=== PATIENT | female | born 1930 | race Caucasian/White ===

== ENCOUNTER 2016-05-18 16:33 | Outpatient (CLI) | payer MEDICARE, OTHER | END 2016-05-18 16:34 | disposition home or self-care (01) | DX: G20 Parkinson's disease (principal); R63.4 Abnormal weight loss; Z79.899 Other long term (current) drug therapy ==

== ENCOUNTER 2016-05-31 16:05 | Outpatient (CLI) | payer MEDICARE, OTHER | END 2016-05-31 16:06 | disposition home or self-care (01) | DX: R82.5 Elevated urine levels of drugs, medicaments and biological substances (principal); R30.0 Dysuria ==

== ENCOUNTER 2016-10-10 09:28 | Outpatient (CLI) | payer MEDICARE, OTHER ==
[2016-10-10 18:48] LABS: ALBUMIN/GLOBULIN RATIO 1.4 (1.0-2.2); BILIRUBIN,TOTAL 0.5 mg/dL (0.2-1.0); BUN - BLOOD UREA NITROGEN 17 mg/dL (6-20); CALCIUM 9.1 mg/dL (8.5-10.3); CARBON DIOXIDE - CO2 28 mmol/L (21-32); CHLORIDE 106 mmol/L (101-111); CHOL/HDL RATIO 3.9 (<4.4); CHOLESTEROL 199 mg/dL; CREATININE 0.7 mg/dL (0.4-1.0); GFR - MDRD 79 (>89); GLUCOSE 84 mg/dL (70-100); HDL CHOLESTEROL 51 mg/dL; LDL/HDL RATIO 2.7 (<4.4); SODIUM 140 mmol/L (135-145); TOTAL PROTEIN 6.8 g/dL (6.7-8.2); TRIGLYCERIDES 60 mg/dL; VLDL CHOLESTEROL 12 mg/dL
[2016-10-10 18:58] LABS: BASOPHILS % (AUTO) 0.4 %; EOSINOPHILS % (AUTO) 0.8 %; HCT - HEMATOCRIT 40.2 % (37.0-47.0); HGB - HEMOGLOBIN 13.2 g/dL (12.0-16.0); LYMPHOCYTES # (AUTO) 1.1 10^3/uL (1.5-3.5); LYMPHOCYTES % (AUTO) 17.4 %; MEAN CORPUSCULAR HGB CONC 32.9 g/dL (32.0-36.0); MEAN CORPUSCULAR VOLUME 94.2 fL (81.0-99.0); MEAN PLATELET VOLUME 7.8 fL (7.9-10.8); MONOCYTES # (AUTO) 0.5 10^3/uL (0.0-1.0); NEUTROPHILS # (AUTO) 4.5 10^3/uL (1.5-6.6); NEUTROPHILS % (AUTO) 73.4 %; RED BLOOD COUNT 4.27 10^6/uL (4.20-5.40); RED CELL DISTRIBUTION WIDTH 14.6 % (12.0-15.0); UNCORRECTED WHITE BLOOD COUNT 6.2 x10^3/uL; WHITE BLOOD COUNT 6.2 x10^3/uL (4.8-10.8)
== END 2016-10-10 09:29 | disposition home or self-care (01) ==
LOC: LAB.R 09:28
PROVIDERS: ATTEND Nurse Practitioner Primary Care
DX: I10 Essential (primary) hypertension (principal)
CPT/HCPCS: 80053; 80061; 85025

== ENCOUNTER 2016-10-28 10:43 | Outpatient (CLI) | payer MEDICARE, OTHER ==
[2016-10-28 15:25] LABS: BILIRUBIN,URINE NEGATIVE (NEGATIVE)
[2016-10-28 15:26] LABS: UA w/ MICROSCOPIC CHARGE YES
[2016-10-28 15:28] LABS: UR CULTURE IF IND INDICATED
== END 2016-10-28 10:44 | disposition home or self-care (01) ==
LOC: LAB.R 10:43
PROVIDERS: ATTEND Nurse Practitioner Primary Care
DX: R82.99 Other abnormal findings in urine (principal)
CPT/HCPCS: 81001; 81003; 87077; 87086

== ENCOUNTER 2017-02-14 11:00 | Outpatient (CLI) | payer MEDICARE, OTHER ==
--- NOTE | 2017-02-14 16:29 | CONSULTATION NOTE ---
Palliative Care Consultation - Referral Referring Provider: DANIELLA Marrero Time of Visit: 11:00 Referral setting: Home (Seen in home setting due to taxing and considerable effort required to leave the home due to instability secondary to advanced Parkinson's disease.) - Information Sources Records reviewed: Previous records reviewed History/Review of Systems obtained from: Patient, Family Exam limitations: No limitations - History of Present Illness Brief History of Present Illness: This is a frail appearing 86-year-old woman with Parkinson's disease diagnosed 17 years ago, as well as Lewy body dementia. She is and lives with her 91-year-old . They have a daughter, Erica, in [place] and also a son in the area. Erica is quite involved with the patient's care and visits her parents every Monday on [facility]. Last year the family transferred the patient to [facility] in [place]. She had increasing confusion, hallucinations and delusions related to her Parkinson's medications, and the symptoms improved with titration of the medications. Seroquel was added last fall to her medications for her agitation and getting out of bed during the night; this, too, has improved. [facility] "couldn't handle her" and the family relocated her to [facility] in [facility], which is a [facility] facility. But [facility] did not work out either -- she missed her and continually asked about him, with increasing confusion and distress. The family moved her back home on [facility] on 04/10/2016, and her has been taking care of her since then. He cooks the meals, does the shopping, manages her medications, and oversees everything. She is still somewhat able to do her ADLs (dressing, personal hygiene, showering) though poorly. She reports having "up" days, and "down" days, and today was an "up" day. On the down days, she is confused, needs to lay down, or will call her daughter expressing anxiety about her situation . The daughter is feeling quite stressed, with commuting [place], and she is concerned about her parents' ability to continue to live independently, specifically her father being able to handle his 's medical and personal needs, and continue to manage the household. Both and stated during this visit that they do not want to leave their home, and they plan to stay there. The daughter realizes, after the experience of sending her mother to live in assisted living facilities, that her mother and father need to stay together. They have a tire and lube technician come in once a week. They do not currently have any caregiving help for the 's medical needs, but may be open to having help, as long as it is not live-in help. They state that they are "fine right now "doing it on their own, though this is because they are receiving a lot of support from their daughter, and also neighbors do look in on them. In addition , the may be facing cancer himself. They are following up on this. The patient has has been steadily losing weight over the past few years, a total of 17 kg since July 2013, including 9 kg since October 2015 (see ROS for details). She had several swallow and dietary evaluations done while at Assisted Living, and the daughter declined having any further swallow evaluations performed. The patient has difficulty swallowing meat, and so her does his best to prepare food she can eat, or cut it up in small pieces. She also some missing and/or cracked teeth, which affects her eating habits. Her does state he tries to serve her snacks between meals, and has tried Ensure but she does not finish the cans. Today her SBP was < 100, likely related to low volume. She denied light- headedness, syncope, vertigo, weakness. Tomorrow she has a medical appointment for incontinence and possible replacement of a pessary. She had one placed previously, and she is not aware if it is still in place. Medical/Surgical History - Past Medical History Cardiovascular: reports: None Respiratory: reports: None Neuro: reports: Dementia, Parkinson's Endocrine/Autoimmune: reports: None GI: reports: None COUNSELING DEPARTMENT CHAIR: reports: Other (Pelvic floor instability; patient is unsure if pessary is in place) : reports: Incontinence Musculoskeletal: reports: Osteoporosis Derm: reports: Other (squamous cell carcinoma in situ, skin. Actinic keratoses. ) MRSA Hx?: No - Past Surgical History Ortho: reports: Spine surgery Social History - Living Situation Living arrangement: At home Living Situation: With spouse/s.o. Support System: Erica, their daughter, travels from [place] to help patient and her every Monday. Erica does not work. Abdelrahman Fagan, their son, also lives in the area. Medications/Allergies - Medications Home Medications: Ambulatory Orders Medication Instructions Recorded Confirmed Carbidopa/Levodopa [Sinemet 25-100 1 each PO MDD Q2hr from 7am to 7pm 11/11/12 12/03/15 mg Tablet] Pramipexole [Mirapex] 0.125 mg PO DAILY 11/11/12 02/14/17 Venlafaxine [Effexor] 75 mg PO DAILY 11/11/12 02/14/17 Acetaminophen PRN MDD 3000mg 02/14/17 Bisacodyl Supp [Dulcolax Supp] 10 mg [place] DAILY PRN 02/14/17 02/14/17 Carbidopa/Levodopa [Carbidopa-Levo 0.5 tab PO ONCE PRN MDD take in 02/14/1710/24 ER 50-200 Tab] middle of night PRN Carbidopa/Levodopa [Carbidopa-Levo 1 tab PO QPM 02/14/17 02/14/17 ER 50-200 Tab] Polyethylene Glycol 3350 [Miralax] 17 gm PO DAILY PRN 02/14/17 02/14/17 QUEtiapine [SEROquel] 25 mg PO QPM 02/14/17 02/14/17 - Allergies Allergies/Adverse Reactions: Allergies Allergy/AdvReac Type Severity Reaction Status Date / Time entacapone [From Comtan] AdvReac Unknown Verified 11/30/15 10:14 Review of Systems - Constitutional Constitutional: reports: Poor appetite, Weight loss (Jul 2013 63 kilos. From Apr -October 2015 it hovers at 55-56 kilos. Nov 2015 53 kilos. May 2016 50 kilos. October 12, 2016 47.5 kilos. Nov 2016 49.5 kilos. Feb 08, 2017 46.1 kilos). denies: Fever, Chills - Eyes Eyes: reports: Corrective lenses - Cardiovascular Cardiovascular: denies: Chest pain, Edema, Decr. exercise tolerance - Respiratory Respiratory: denies: Cough, Sputum production, SOB at rest, SOB with exertion - Gastrointestinal Gastrointestinal: reports: Poor appetite. denies: Constipation, Diarrhea, Nausea, Vomiting - Genitourinary Genitourinary: denies: Dysuria, Frequency - Musculoskeletal Musculoskeletal: denies: Muscle pain - Neurological Neurological: reports: Memory problems, Abnormal gait Physical Exam - Vital Signs Temperature: 97.6 F Pulse Rate: 66 O2 Saturation: 99 Blood Pressure: 90/64 - Physical Exam General Appearance: positive: No acute distress, Alert Eyes Bilateral: positive: EOMI, No lid inflammation, Conjunctivae nml, No scleral icterus Neck: positive: Thyroid nml, No JVD, Trachea midline Cardiovascular: positive: Regular rate & rhythm, No murmur, No gallop Respiratory: positive: Chest non-tender, No respiratory distress, Breath sounds nml Abdomen: positive: Non-tender, Soft, Abnml bowel sounds (hypoactive) Skin: positive: No symptoms Extremities: positive: Non-tender, No pedal edema Neurologic/Psychiatric: positive: Sensation nml, Mood/affect nml. negative: Motor nml Palliative Care - POLST Patient has POLST: Yes POLST Status: DNR, Limited Interventions Pain: No pain Tiredness/Fatigue: None Drowsiness/Sedation: None Nausea: None Depression: None Anxiety: None Dyspnea: None Anorexia: Moderate (4-6) Sleep: Variable sleep pattern (Can wake up in the night due to symptoms, and then uses an extra half-dose of Sinemet for relief) Constipation: No Performance Status: Current level of functioning: Still able to perform ADLs, but poorly and so is requiring more assistance. Shuffling gait but still able to ambulate without walker around the house. Does not leave the house much anymore. Cognitive decline, increasing short-term memory issues. Tremors and Parkinson's symptoms require close adherence to a strict schedule to keep under control: Sinemet every two hours between 7 am and 7pm, plus an evening dosage, and half a dose if she wakes up during the night. Palliative Care Performance Status: 50% - Palliative Care Discussion: Who is present: Patient, spouse, daughter, myself Surrogate decision maker: Aldo Garzonma, spouse, Erica Pat, daughter. , contact her instead of son. Abdelrahman Fagan, son. [phone] Patient/Family understanding of the illness: Daughter has clear understanding that her mother is getting more frail, with increased cognitive deficits. Spouse states he can take care of everything and it is not difficult, and neither one has a clear understanding of the amount of "outside" support they actually require in order to remain in their home. The daughter is taking a lot on herself; she brings food, shops, goes with them to medical appointments, does paperwork and research, and more. Most important goals: The daughter stresses that the goal is not to extend her mother's longevity but to keep her comfortable and safe, and the patient also states she does not want medical intervention to extend her life. The patient and her at this point are determined to stay in their home, and to eventually at home. The daughter knows they have no intention of leaving their home, particularly her father. He designed and built it himself, after the age of 58. Certainly the experience of admitting the patient to Assisted Living last year, and her reaction to being from her , has made the daughter realize that them is not going to work; they need to live together. Fortunately they do have the financial resources to afford caregivers; which does not solve the issue of actually finding good care giving help. The patient says she is not adverse to having care-giving help in the house, but she does not want live-in caregivers. The appears more reticent about having any outside help coming in. Patient/family concerns: The daughter is interested in on-going palliative care support for her mother, she feels it is important to have continuity of care and someone who becomes familiar with the patient and her situation providing on-going oversight. The daughter would like to speak to the palliative care social services specialist for resource help and support around care giving and other areas as well. The is wondering how to manage the Sinemet dosing for his every two hours throughout the day. He does not wear a watch or use a mobile phone, and they don't want any "high tech" solutions. We discussed finding a simple alarm system (like a kitchen timer) that will audibly alert him when the next dose is due. We also discussed risks associated with advanced Parkinson's, eg, swallowing issues and increased risk of falls and fractures, and ways to minimize risk, such as putting underlays beneath area rugs to mitigate the risk of carpet slippage. Impression and Recommendations - Palliative Care Impression: This is an 86 year old woman with Parkinson's and advancing Lewy body dementia who has steadily lost significant weight over the past several years. She lives at home with her 91-year-old as her primary acute care physician, who is facing serious health concerns himself (cancer) and is at risk of acute care physician burnout. The family would benefit from social services specialist support and on-going palliative care consultation. Recommendations/Counseling Done: Parkinson's disease: Advancing. A complicated regimen of Sinemet and pramipexole is used to manage symptoms. needs a dependable, simple reminder system to administer the patient's Sinemet dosing every two hours, eg, kitchen timer. Daughter will research and obtain one. Lewy body dementia: With behaviors. Continue quetiapine and venlafaxine. Urinary incontinence/pelvic floor instability: Has an appointment tomorrow with urologist. Patient will inquire about pessary. Low BP: Likely related to low fluid volume. Asymptomatic for vertigo, syncope , lightheadedness. Recommend increased fluid intake to 4-8 glasses/day. They will follow up with another BP reading at medical appointment tomorrow. Advanced care planning: New POLST filled in and signed, DNR, limited interventions. Referred to social services specialist for evaluation and support regarding resources. Toeing Stockings to follow up with family; SUPERVISOR LONG GOODS follow up in 1-2 weeks. Time Spent: 75 minutes with greater than 50% of this done in counseling and coordination of care regarding advanced care planning and care giving issues, weighing benefits and burdens of different intervention options. Provided anticipatory guidance.
== END 2017-02-14 11:01 | disposition home or self-care (01) ==
LOC: PC 11:00
PROVIDERS: ATTEND Nurse Practitioner
DX: Z51.5 Encounter for palliative care (principal); G31.83 Neurocognitive disorder with Lewy bodies; F02.80 Dementia in other diseases classified elsewhere, unspecified severity, without behavioral disturbance, psychotic disturbance, mood disturbance, and anxiety; K08.409 Partial loss of teeth, unspecified cause, unspecified class; R32 Unspecified urinary incontinence; R26.9 Unspecified abnormalities of gait and mobility; R63.0 Anorexia; G47.8 Other sleep disorders; R03.1 Nonspecific low blood-pressure reading; Z66 Do not resuscitate
CPT/HCPCS: 99345

== ENCOUNTER 2017-03-07 13:00 | Outpatient (CLI) | payer MEDICARE, OTHER ==
--- NOTE | 2017-03-07 18:15 | CONSULTATION NOTE ---
Palliative Care Follow Up - Referral Referring Provider: DANIELLA Marrero Time of Visit: 13:00 Referral setting: Home (Seen in home setting due to taxing and considerable effort required to leave the home due to instability secondary to advanced Parkinson's disease.) - Information Sources Records reviewed: Previous records reviewed History/Review of Systems obtained from: Patient, Family Exam limitations: Clinical condition (some forgetfulness due to dementia) - History of Present Illness Update Brief HPI Update: This is a frail appearing 86-year-old woman with Parkinson's disease diagnosed 16 years ago, as well as Lewy body dementia. She is and lives with her 91-year-old . Their adult daughter, Erica, lives in [place] and is quite involved with patient's care, visiting her parents about every Monday on [facility]. Last year the patient had transferred to an assisted living facility on the [place], and then later transferred to another assisted living in [facility]. The supply since did not work because she missed her too much and became quite agitated and upset being . The family moved her back [address] [facility] home in April of 2016. Ever since then her has been taking care of her and giving most of the cooking, but with extensive support from her daughter Erica, as well as help from neighbors (for instance supplying them cooked meals). She is able to do most of her own ADLs as though her does give her some assistance with these. She is able to run errands with him in the car and does accompany him, although she is not able to do many things independently due to her frailty and lack of balance. She has been stable since my last visit 2 weeks ago. They've just had 18 people over to the house for Thanksgiving, and though they did not do the cooking they did find it somewhat fatiguing making preparations. They did enjoy themselves. The today we talked about progression of Parkinson's and the started thinking about the usefulness of getting additional help in, perhaps twice a week for 4 hours a day, as companionship for his as well as somebody who could cook meals. This is a significant step forward in his thinking because previously he had insisted he was able to handle everything all right. They had a follow up visit with Urology, and her pessary was repositioned. She reports improvement. Social History - Living Situation Living arrangement: At home Living Situation: With spouse/s.o. (Erica, the adult daughter, travels from [place] to help them every Monday. Their neighbors occasionally make dinners for them. their son, Abdelrahman Fagan, also lives in the area.) Medications/Allergies - Medications Home Medications: Ambulatory Orders Medication Instructions Recorded Confirmed Carbidopa/Levodopa [Sinemet 25-100 1 each PO MDD Q2hr from 7am to 7pm 11/11/12 12/03/15 mg Tablet] Venlafaxine [Effexor] 75 mg PO DAILY 11/11/12 02/14/17 Acetaminophen PRN MDD 3000mg 02/14/17 Bisacodyl Supp [Dulcolax Supp] 10 mg [place] DAILY PRN 02/14/17 03/07/17 Carbidopa/Levodopa [Carbidopa-Levo 0.5 tab PO ONCE PRN MDD take in 02/14/17 ER 50-200 Tab] middle of night PRN Carbidopa/Levodopa [Carbidopa-Levo 1 tab PO QPM 02/14/17 03/07/17 ER 50-200 Tab] Polyethylene Glycol 3350 [Miralax] 17 gm PO DAILY PRN 02/14/17 03/07/17 QUEtiapine [SEROquel] 25 mg PO QPM 02/14/17 03/07/17 - Allergies Allergies/Adverse Reactions: Allergies Allergy/AdvReac Type Severity Reaction Status Date / Time entacapone [From Comtan] AdvReac Unknown Verified 11/30/15 10:14 Review of Systems - Constitutional Constitutional: reports: Fatigue (after Thanksgiving, but now recuperated) - Cardiovascular Cardiovascular: reports: Lightheadedness (occasionally), Other (occasional orthostatic hypotension) - Respiratory Respiratory: denies: Cough - Gastrointestinal Gastrointestinal: reports: Constipation (occasionally). denies: Diarrhea - Genitourinary Genitourinary: denies: Dysuria - Neurological Neurological: reports: Memory problems (dementia), Abnormal gait, Other ( Parkinson's disease) Physical Exam - Vital Signs Temperature: 97.1 F Pulse Rate: 86 O2 Saturation: 95 Blood Pressure: 120/85 - Physical Exam General Appearance: positive: No acute distress, Alert Eyes Bilateral: positive: PERRL, EOMI, No lid inflammation, Conjunctivae nml, No scleral icterus ENT: positive: No signs of dehydration Neck: positive: Thyroid nml, No JVD, Trachea midline Cardiovascular: positive: Regular rate & rhythm, No murmur, No gallop Respiratory: positive: Chest non-tender, No respiratory distress Skin: positive: No symptoms Extremities: positive: Nml appearance, No pedal edema Neurologic/Psychiatric: positive: Oriented x3, Mood/affect nml Palliative Care - POLST Patient has POLST: Yes POLST Status: DNR, Limited Interventions Pain: No pain Tiredness/Fatigue: Mild (1-3) Drowsiness/Sedation: None Nausea: None Depression: None Anxiety: None Dyspnea: None Anorexia: Mild (1-3) (She is underweight but reports liking to eat what she likes to eat, but her likes to serve meat. This is hard for her to eat.) Sleep: Variable sleep pattern (She says she sleeps well, but she does wake up occasionally in the night. Uses a half-dose of Sinemet when that occurs.) Performance Status: Current level of functioning: Stable. Performs own ADLs. Ambulates mostly with walker; has shuffling gait. Is able to leave house with , going on errands and shopping. Unable to drive. Increasing short-term memory issues. Parkinson's symptoms (tremors, shffuling gait) require close adherence to medication schedule of Sinemet q2hrs between 7-7pm. - Palliative Care Discussion: The patient's concern is having a disease that has no cure; she knows that she can't "take anything" to get better, and that she will continue to decline over time. She is concerned about her dependence on her , and what will become of her if she is ever alone. Today he said he would be interested in having help around the house for half a day two days a week or so. This would provide companionship for his , and ideally also someone who could cook for them. This is a significant change from my previous visit where he was reluctant about having any outside help coming in. Today he thought it would be beneficial to have a visit with our director social to have support about resources. We reviewed issues around Parkinson's, how to minimize risks of falls and fractures, adjustments to diet (avoid lettuce, cut up meat, or find alternatives ) to minimize risks of choking. Impression and Recommendations - Palliative Care Impression: This is an 86 year old woman with Parkinson's and advancing Lewy body dementia. Her is her primary career orientation teacher, with signifiant support from their adult daughter, as well as friends and neighbors. They could benefit from additional care giving help, and the has indicated that he would welcome some social work support and input. Recommendations/Counseling Done: Parkinson's disease: Stable, though slowly advancing. Sinemet requires adherence to a 2hr dosing schedule between 7-7pm, which they have worked out without having to use a timer or beeper. They stopped pramipexole some weeks ago. Lewy body dementia with behaviors: Stable. Continue quetiapine and venlafaxine. Low BP: Resolved. BP today was normal. Patient has increased her fluid intake. Encouraged her to continue . Urinary incontinence/pelvic floor instability: Resolved. Urologist repositioned pessary at recent follow-up visit. Advanced Care Planning: POLST signed and in place: DNR, limited. is agreeable to having director social support. He would like additional care giving support a few times a week for his to have companionship and also meal preparation, ideally. A BARREL BRANDER meeting has been set up for 03/15 of 03/14. Next CORPORATE CONTROLLER visit is scheduled for 04/13/17 at 13:00. Time Spent: 60 minutes were spent with more than 505 f the time spent on counseling, education, and coordination of care regarding Parkinson's and dementia. Anticipatory guidance was provided.
== END 2017-03-07 13:01 | disposition home or self-care (01) ==
LOC: PC 13:00
PROVIDERS: ATTEND Nurse Practitioner
DX: Z51.5 Encounter for palliative care (principal); F02.80 Dementia in other diseases classified elsewhere, unspecified severity, without behavioral disturbance, psychotic disturbance, mood disturbance, and anxiety; G31.83 Neurocognitive disorder with Lewy bodies; Z79.899 Other long term (current) drug therapy; R26.9 Unspecified abnormalities of gait and mobility; Z66 Do not resuscitate
CPT/HCPCS: 99350

== ENCOUNTER 2017-04-13 16:17 | Outpatient (CLI) | payer MEDICARE, OTHER ==
--- NOTE | 2017-04-13 16:34 | CONSULTATION NOTE ---
Palliative Care Follow Up - Referral Referring Provider: DANIELLA Clark Time of Visit: 04/13/2017 13:00 Referral setting: Home (Seen in home setting due to taxing and considerable effort required to leave the home due to instability secondary to advanced Parkinson's disease.) - Information Sources Records reviewed: Previous records reviewed History/Review of Systems obtained from: Patient, Family Exam limitations: Clinical condition (dementia; short term memory issues; word search.) - History of Present Illness Update Brief HPI Update: This is a frail 87-year-old woman with parkinson's disease diagnosed 16 years ago, as well as Lewy body dementia. She has been slowly declining in strength, functionality and cognition. She lives with her 91-year-old who is her main foster care therapist. Their adult daughter, Erica, lives in [place] and comes almost every Monday. Palliative care was originally brought in since it is difficult for the patient to get to the clinic and because her was feeling overwhelmed with his care. Today they both seem more relaxed, and he reports that things are going very well, and he feels that over time he has learned how to manage cooking and other tasks, and that things are running very smoothly. He doesn't feel overwhelmed, and says he has plenty of time. Part of that is because it's winter, and his workload is less because he's not working out in the garden. But for the time being, he doesn't feel they need any extra care giving help, or even help with the cooking. They still have a person coming to help with the housework every week. He also acknowledges that they have very supportive and helpful neighbors and friends who often bring food and meals. So he really feels that it is going well. Erica also feels that in the future she won't be coming every Monday. They would like to continue monthly palliative care visits so that I may monitor the patient's status. Patient states that she is doing well symptomatically. She finds that she gets tired every day around 1pm and often needs to rest. She reports that, "We're having more good days than bad." Erica observes that her mother's memory is getting worse, and also that she can become confused. In the past she has been confused whether her were actually several people. Erica feels that occasionally she still has those moments of confusion. The disagrees about her poor memory; he says that she does remember things, but it can take awhile for her to do so; she'll come up with the answer or the word she was looking for a few hours later. Social History - Living Situation Living arrangement: At home Living Situation: With spouse/s.o. (Daughter, Erica, lives in [place] and has been coming every Monday to visit and help out. Neighbors and friends bring dinner ove rand help them out. They also have a son who lives out of the area.) Medications/Allergies - Medications Home Medications: Ambulatory Orders Medication Instructions Recorded Confirmed Carbidopa/Levodopa [Sinemet 25-100 1 each PO MDD Q2hr from 7am to 7pm 11/11/12 12/03/15 mg Tablet] Venlafaxine [Effexor] 75 mg PO DAILY 11/11/12 02/14/17 Acetaminophen PRN MDD 3000mg 02/14/17 Bisacodyl Supp [Dulcolax Supp] 10 mg [place] DAILY PRN 02/14/17 03/07/17 Carbidopa/Levodopa [Carbidopa-Levo 0.5 tab PO ONCE PRN MDD take in 02/14/17 ER 50-200 Tab] middle of night PRN Carbidopa/Levodopa [Carbidopa-Levo 1 tab PO QPM 02/14/17 03/07/17 ER 50-200 Tab] Polyethylene Glycol 3350 [Miralax] 17 gm PO DAILY PRN 02/14/17 03/07/17 QUEtiapine [SEROquel] 25 mg PO QPM 02/14/17 03/07/17 - Allergies Allergies/Adverse Reactions: Allergies Allergy/AdvReac Type Severity Reaction Status Date / Time entacapone [From Comtan] AdvReac Unknown Verified 11/30/15 10:14 Review of Systems - Constitutional Constitutional: reports: Fatigue, Poor appetite, Weight loss (46.1 kilos (101 lbs) Feb 08, 2017. 43.2 kilos (95 lbs) Apr 13, 2017.) - Ears, Nose & Throat Ears, Nose & Throat: reports: Hearing loss, Dry mouth - Cardiovascular Cardiovascular: denies: Chest pain, Edema, Lightheadedness, Exertional dyspnea - Respiratory Respiratory: denies: SOB at rest, SOB with exertion - Gastrointestinal Gastrointestinal: reports: Other (incontinent of bowel) - Genitourinary Genitourinary: reports: Incontinence (for many years) - Integumentary Integumentary: reports: Other (hemosiderin stains on LEs) - Neurological Neurological: reports: Memory problems, Abnormal gait (Parkinson's shuffle) - Psychiatric Psychiatric: reports: Depression, Other (confusion) Physical Exam - Vital Signs Temperature: 97.2 F Pulse Rate: 53 O2 Saturation: 95 Blood Pressure: 130/85 - Physical Exam General Appearance: positive: No acute distress, Alert Eyes Bilateral: positive: EOMI, No lid inflammation, Conjunctivae nml, No scleral icterus ENT: positive: Pharynx nml, No signs of dehydration Neck: positive: Thyroid nml, No JVD, Trachea midline Cardiovascular: positive: Regular rate & rhythm, No murmur, No gallop Respiratory: positive: No respiratory distress, Breath sounds nml Skin: positive: Other (hemosiderin staining on LEs) Extremities: positive: Non-tender, No pedal edema Neurologic/Psychiatric: positive: Oriented x3, Mood/affect nml, Other (word search, short term memory deficits) Palliative Care - POLST Patient has POLST: Yes POLST Status: DNR, Selective Treatment Pain: No pain Tiredness/Fatigue: Mild (1-3) Drowsiness/Sedation: None Nausea: None Depression: Mild (1-3) Anxiety: None Dyspnea: None Anorexia: Mild (1-3) Sleep: Sleeps well Constipation: No - Palliative Care Discussion: Patient's and daughter were part of the visit. When they left the room, the patient spoke to me about feeling depressed after the holidays were over. She spoke of the feeling that she has lost her independence. For instance, in no longer being able to drive, in no longer being able to cook or be part of the running of the household. She felt like she was no longer any good at anything. One time she said to her , "What difference would it make if I ." His response was "it would make a difference to me." She feels like she is not useful or productive anymore. She said both her and her daughter are very strong (minded) and sometimes, "I feel stupid." She feels like so many things she does she is being watched and then criticized, or treated like a child, being watched over like a child: what she eats, or when she tries to help her in the kitchen, or when she tried to fold the napkins for one of the recent holiday dinners they hosted. (They had a large group over for . They also had another large family group over around . But this was the first time in 60 years that they weren't waking up in the house with their daughter on morning. They celebrated with the family before , but decided to remain home on , and Erica's family was in [place].) She was diagnosed with Parkinson's 16 years ago, and commented how it took a long time to see changes and decline. She wanted to know about what to expect as the disease progresses, so I provided education on slow, gradual decline, and what that could look like with more susceptibility to infection and its sequelae, increasing weakness, with increased risk of falls and fractures and their sequelae, increasing cognitive deficits, and so on. I spoke to her about supervisor lead burning support as part of palliative care, and she stated she would like to talk to a supervisor lead burning. She does not follow a christian parrish. Impression and Recommendations - Palliative Care Impression: This is a frail 87-year-old woman with Parkinson's and slowly progressive Lewy body dementia who has lost significant weight over the past several years and continues to do so. She lives at home with her 91-year-old who is her primary foster care therapist. They have a good level of support from family and friends, plus weekly cleaning help. Currently they are managing well at home, and their goal is to remain at home together through end of life. They do have financial means to engage caregivers as their needs increase. They would benefit from ongoing palliative care support and oversight. Recommendations/Counseling Done: Parkinson's disease: Progressing steadily. She has a complicated medication regimen including Sinemet every 2 hours from 7am-7pm, which her oversees for her. Lewy body dementia with behaviors: Stable, continue Seroquel. Depression: Continue venlafaxine. Referral to [facility] for supportive care. Low BP: Normal today. She is still challenged with increasing her fluid intake. I recommended filling two quart containers every day with the goald of drinking from them each day until empty, as a way to gauge how much water she's actually drinking. She also complains of dry mouth; a chronic problem for many years. Advanced care planning: Their main goal is to remain at home, through end of life. feels he is currently managing the cooking and household very well and does not feel overwhelmed, so they are not following up on hiring caregivers at this time. They did contact [facility], but feel in wintertime they don't need help. This may change once the weather improves and he starts spending more time out in the garden and working around his property. They would like palliative care visits scheduled every month, on a Monday. Erica will contact me to schedule next month's. drug abuse social worker met with them on and will contact them at end of April for the next visit. Daughter Erica will contact me to schedule May's visit. Time Spent: 75 minutes were spent with more than 50% of the time spent on counseling, education, and coordination of care regarding dementia, Parkinson's, depression. Provided anticipatory guidance.
== END 2017-04-13 16:18 | disposition home or self-care (01) ==
LOC: PC 16:17
PROVIDERS: ATTEND Nurse Practitioner
DX: Z51.5 Encounter for palliative care (principal); G31.83 Neurocognitive disorder with Lewy bodies; F02.81 Dementia in other diseases classified elsewhere, unspecified severity, with behavioral disturbance; F32.9 Major depressive disorder, single episode, unspecified; Z66 Do not resuscitate
CPT/HCPCS: 99350

== ENCOUNTER 2017-04-26 18:01 | Emergency (ER) | payer MEDICARE, OTHER ==
--- NOTE | 2017-04-26 19:33 | ED Physician Documentation ---
PD HPI LOWER EXT INJURY - Stated complaint Stated Complaint: FOOT/LEG LAC - Chief complaint Chief Complaint: Ext Problem - History obtained from History obtained from: Patient, Family () - History of Present Illness PD HPI LOW EXT INJURY LOCATION: Right (trip and fall and Has a large skin tear area on the anterior right jackson tonight. 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 Musculoskeletal: Osteoporosis Derm: Other - Past Surgical History Past Surgical History: Yes Ortho: Spine surgery - Present Medications Home Medications: Ambulatory Orders Medication Instructions Recorded Confirmed Carbidopa/Levodopa [Sinemet 25-100 1 each PO MDD Q2hr from 7am to 7pm 11/11/12 12/03/15 mg Tablet] Venlafaxine [Effexor] 75 mg PO DAILY 11/11/12 02/14/17 Acetaminophen PRN MDD 3000mg 02/14/17 Bisacodyl Supp [Dulcolax Supp] 10 mg [place] DAILY PRN 02/14/17 03/07/17 Carbidopa/Levodopa [Carbidopa-Levo 0.5 tab PO ONCE PRN MDD take in 02/14/17 ER 50-200 Tab] middle of night PRN Carbidopa/Levodopa [Carbidopa-Levo 1 tab PO QPM 02/14/17 03/07/17 ER 50-200 Tab] Polyethylene Glycol 3350 [Miralax] 17 gm PO DAILY PRN 02/14/17 03/07/17 QUEtiapine [SEROquel] 25 mg PO QPM 02/14/17 03/07/17 Cephalexin [Keflex] 500 mg PO QID #20 capsule 04/26/17 - Allergies Allergies/Adverse Reactions: Allergies Allergy/AdvReac Type Severity Reaction Status Date / Time entacapone [From Comtan] AdvReac Unknown Verified 11/30/15 10:14 - Social History Does the pt smoke?: No Smoking Status: Never smoker Does the pt drink ETOH?: Yes Does the pt have substance abuse?: No - Immunizations Immunizations are current?: No Immunizations: TDAP >10years/unknown - POLST Patient has POLST: Yes PD ED PE NORMAL - Vitals Vital signs reviewed: Yes - General General: Alert and oriented X 3, No acute distress - Extremities Extremities: Other (On the anterior mid right jackson there is a jagged large skin tear measuring about 10 cm top to bottom into subcutaneous fat but not deeper.) - Neuro Neuro: Alert and oriented X 3, Normal speech, Other (Parkinsonian tremors) Results - Vitals Vitals: Vital Signs - 24 hr 04/26/17 04/26/17 18:20 18:25 Temperature 36.5 C Heart Rate 78 Respiratory 20 Rate Blood Pressure 101/72 O2 Saturation 93 99 Oxygen O2 Source Room air Procedures - Laceration (location) Right jackson Length in cm: 10 Wound type: Stellate, Irregular, Superficial, Into subcut fat Wound Preparation: Irrigated copiously NS Skin layer closure: Steri strips Other: Tetanus UTD Complexity: Simple PD MEDICAL DECISION MAKING - ED course ED course: Wound is too shallow to consider suturing, it would not hold sutures. It was approximated with Steri-Strips and follow-up with primary care was advised for consideration for wound care. Departure - Departure Disposition: 01 Home, Self Care Clinical Impression: Skin tear of right lower leg without complication Qualifiers: Encounter type: initial encounter Qualified Code(s): S81.811A - Laceration without foreign body, right lower leg, initial encounter Condition: Good Record reviewed to determine appropriate education?: Yes Instructions: ED Laceration Ext Sutr Stap Tape Prescriptions: Cephalexin [Keflex] 500 mg PO QID #20 capsule Comments: Follow-up with Dr. gil in 2-3 days for wound check, consider wound care referral.
[2017-04-26] MEDS ORDERED: cephALEXin 250 MG CAPSULE PO STA (19:34)
[2017-04-26 19:48] VITALS: BP 134/58
== END 2017-04-26 19:54 | disposition home or self-care (01) ==
LOC: ED 18:01
DX: S81.811A Laceration without foreign body, right lower leg, initial encounter (principal); W01.0XXA Fall on same level from slipping, tripping and stumbling without subsequent striking against object, initial encounter; G20 Parkinson's disease; F02.80 Dementia in other diseases classified elsewhere, unspecified severity, without behavioral disturbance, psychotic disturbance, mood disturbance, and anxiety
CPT/HCPCS: 99282; 99283; A9270

== ENCOUNTER 2017-05-24 14:17 | Outpatient (CLI) | payer MEDICARE, OTHER ==
--- NOTE | 2017-05-24 14:21 | CONSULTATION NOTE ---
Palliative Care Follow Up - Referral Referring Provider: DANIELLA Marrero Time of Visit: 05/24/2017. 10:00 - 10:45 Referral setting: Home - Information Sources Records reviewed: Previous records reviewed History/Review of Systems obtained from: Patient, Family Exam limitations: Clinical condition (memory deficits; dementia) - History of Present Illness Update Brief HPI Update: This is a frail 87-year-old woman with Parkinson's disease diagnosed 16 years ago, as well as Lewy body dementia, she has been experiencing a slow but steady decline in functionality and cognition, and lives with her 91-year-old who is her main caregiver. Their adult daughter Erica lives in [place] and visits them every 1-2 weeks. The patient has continued to lose weight she is now down 2 more pounds at 93 pounds. Last month she was weighing 95 pounds and prior to that 101 pounds in February 2017. Her daughter reports she becomes easily distracted at meals taking a bite or 2 and then going off to do something else or simply forgets to eat. In addition her does the cooking and sometimes he skips meals because he is not hungry, and unfortunately his follows suit. She reports feeling fairly well but has her ups and downs, mentally, with her depression. She is quite forgetful, and as mentioned earlier easily distracted , even during conversation. She does exhibit word search and some confusion with speaking. Her daughter is concerned about the increase in forgetfulness, and at times she may be having delusions, fearing other people or in the house. She has a history of frequent falls including one on 04/26/17 where she had a skin tear on her right jackson, for which she had a visit to the ED. She is seeing the [facility] for wound care, the most recent visit was 05/22/17. She has also had a more recent fall, and we took this opportunity to discuss fall precautions, including obtaining nonskid pads for the numerous throw rugs they have throughout the house, we also discussed consistently using her walker since her gait is quite unsteady at this point. Her daughter is very concerned about this point in and we did spend time discussing this. The patient's exhibited some resistance and I am doubtful she will consistently follow this advice. The patient reiterated that she would enjoy having barkeeper visits, and I followed up with my previous referral to the barkeeper. Family wants regular palliative care follow-up to monitor and oversee the patient's condition, and we will coordinate those visits with the daughter's visits from [place]. Social History - Living Situation Living arrangement: At home Living Situation: With spouse/s.o. Support System: Sondra Maldonado visits every 1-2 weeks from [place], on Wednesdays. They have a support network of friends and neighbors who help them with errands, etc. They have a warehouse unloader who comes weekly. Medications/Allergies - Medications Home Medications: Ambulatory Orders Medication Instructions Recorded Confirmed Carbidopa/Levodopa [Sinemet 25-100 1 each PO DAILY MDD Q2hr from 7am 11/11/12 mg Tablet] to 7pm Venlafaxine [Effexor] 75 mg PO DAILY 11/11/12 05/15/17 Acetaminophen 325 mg PO Q4HR PRN MDD 3000mg 02/14/17 05/15/17 Carbidopa/Levodopa [Carbidopa-Levo 1 tab PO QPM 02/14/17 05/15/17 ER 50-200 Tab] Polyethylene Glycol 3350 [Miralax] 17 gm PO DAILY PRN 02/14/17 05/15/17 QUEtiapine [SEROquel] 25 mg PO QPM 02/14/17 05/15/17 Cephalexin [Keflex] 500 mg PO QID #20 capsule 04/26/17 05/15/17 - Allergies Allergies/Adverse Reactions: Allergies Allergy/AdvReac Type Severity Reaction Status Date / Time entacapone [From Comtan] AdvReac Unknown Verified 11/30/15 10:14 Review of Systems - Constitutional Constitutional: reports: Poor appetite (easily distracted), Weight loss (93 lbs on 05/24/17. 95 lbs on 04/13/17. 101 lbs on 02/08/17.) - Ears, Nose & Throat Ears, Nose & Throat: reports: Hearing loss - Cardiovascular Cardiovascular: reports: Edema - Respiratory Respiratory: reports: Cough (occasional). denies: SOB at rest, SOB with exertion - Gastrointestinal Gastrointestinal: reports: Constipation (is not using Miralax daily), Other ( incontinent of bowel) - Genitourinary Genitourinary: reports: Incontinence (for many years) - Integumentary Integumentary: reports: Other (hemosiderin stains on LEs) - Neurological Neurological: reports: Memory problems, Abnormal gait (Parkinson's freezing, shuffling gait) - Psychiatric Psychiatric: reports: Depression (self reported "up and down" moods), Delusions (history of delusions) Physical Exam - Vital Signs Temperature: 96.5 F Pulse Rate: 51 O2 Saturation: 95 Blood Pressure: 92/62 - Physical Exam General Appearance: positive: No acute distress, Alert Eyes Bilateral: positive: EOMI, Conjunctivae nml, No scleral icterus. negative : No lid inflammation (mildly red L upper eyelid) ENT: positive: No signs of dehydration Neck: positive: Thyroid nml, No JVD, Trachea midline Cardiovascular: positive: Regular rate & rhythm, No murmur, No gallop Respiratory: positive: Chest non-tender, No respiratory distress, Diminished throughout Abdomen: positive: Non-tender Skin: positive: Wound (R jackson, bandage clean, dry, intact) Extremities: positive: Non-tender, No pedal edema Neurologic/Psychiatric: positive: Mood/affect nml, Disoriented to time Palliative Care - POLST Patient has POLST: Yes POLST Status: DNR, Selective Treatment Pain: No pain Depression: Mild (1-3) ("up and down") Anxiety: Mild (1-3) Dyspnea: None Anorexia: Moderate (4-6), Weight loss (See ROS) Sleep: Sleeps well Constipation: Yes (Has not been using Miralax as advised) - Palliative Care Discussion: Her feels he has adjusted well to handling the household duties and cooking duties. The patient likes to find projects to do to feel useful (for example, cleaning out drawers); and there is apparently some mild friction between them about this. The patient expresses interest in having barkeeper support, and I have requested that the barkeeper arrange the visit through Erica the daughter, as she is the one to keep the parents' calendar. This scheduling is somewhat problematic for the patient's . Today while I was there a couple arrived whom they had expected yesterday, yet the couple clearly felt the appointment had been made for today, "Tatum's Day." This is one of the areas that Erica is concerned about, that is their ability to manage their affairs and logistics somewhat independently. We did discuss falls and fall precautions, and eventually the patient did state it would be a good idea to obtain rug underlays. This is certainly a positive step forward. Impression and Recommendations - Palliative Care Impression: This is a frail 87-year-old woman with Parkinson's and slowly progressive Lewy body dementia. She has lost weight over the past few years and continues to do so. They currently live semi-independently at home, with the extensive help and assistance of friends, neighbors and the oversight of their daughter Erica who lives in [place], visits frequently, and helps organize their lives and calendars. Their main goal is to remain at home together through the end of life , and fortunately they do have financial means to eventually hire caregivers as that need arises. They would benefit from ongoing palliative care support and oversight. Recommendations/Counseling Done: Parkinson's disease: Stable on complicated regimen including Sinemt Q2h [id number] -7pm. Her manages that. Lewy body dementia: History of delusions, likely mild recurrence. Continue Seroquel. Low BP: Low today, 92/62. Encourage maintaining adequate intake of fluids. Weight loss, unintentional: Discussed small, frequent meals, not skipping lunches, adding calories with powdered milk, providing Ensure and adding ice cream or whipped cream. Patient is easily distracted after only one or two bites. Continue to monitor weight. Depression: Stable. Continuge venlafaxine. Detail Manager to start supportive visits. Advanced care planning: POLST in place, DNR and selective treatment. Goal is to remain at home through end of life. Currently they have no outside caregiving but eventually they will need to bring care giving help in. Fortunately they can manage this financially. Daughter does provide consistent oversight. They have requested monthly palliative care oversight, and as needed. Next visit: June 14, 2017 11:00 Time Spent: 45 minutes were spent with more than 50% of the time spent on counseling, education, and coordination of care.
== END 2017-05-24 14:18 | disposition home or self-care (01) ==
LOC: PC 14:17
PROVIDERS: ATTEND Nurse Practitioner
DX: Z51.5 Encounter for palliative care (principal); G31.83 Neurocognitive disorder with Lewy bodies; F02.80 Dementia in other diseases classified elsewhere, unspecified severity, without behavioral disturbance, psychotic disturbance, mood disturbance, and anxiety; R03.1 Nonspecific low blood-pressure reading; F32.9 Major depressive disorder, single episode, unspecified; R63.0 Anorexia; R63.4 Abnormal weight loss; K59.00 Constipation, unspecified; R32 Unspecified urinary incontinence; I10 Essential (primary) hypertension; Z91.81 History of falling; Z96.0 Presence of urogenital implants; Z79.2 Long term (current) use of antibiotics; Z66 Do not resuscitate
CPT/HCPCS: 99349

== ENCOUNTER 2017-06-14 11:00 | Outpatient (CLI) | payer MEDICARE, OTHER ==
--- NOTE | 2017-06-14 15:30 | CONSULTATION NOTE ---
Palliative Care Follow Up - Referral Referring Provider: DANIELLA Marrero Time of Visit: 06/14/2017. 11:00 - 11:45. Referral setting: Home (Seen in home setting due to taxing and considerable effort required to leave the home due to instability secondary to advanced Parkinson's disease.) - Information Sources Records reviewed: Previous records reviewed History/Review of Systems obtained from: Patient, Family Exam limitations: Clinical condition (dementia, short term memory deficits, word search) - History of Present Illness Update Brief HPI Update: This is a frail 87-year-old woman with Parkinson's disease diagnosed 16 years ago, as well as Lewy body dementia. She has been slowly declining in strength, functionality, and cognition. She lives with her 91-year-old , who is her main caregiver. Their adult daughter, Erica, lives in [place] and comes every Monday or every other Monday. The patient continues her slow, steady decline with increased imbalance, uncertain gait, and frequent falls. Her cognition continues to decline with increased forgetfulness and memory deficits. As she is frail and continues to struggle with getting sufficient calorie intake, and maintaining her weight. She has lost another 2 pounds since my previous visit, and is 91 pounds today. We discussed the possibility of restarting her on home health physical therapy to possibly help with weakness in her lower legs and improving balance issues. She and her will consider this. She [place] [facility] [place] for the R jackson tear, which is mostly resolved. Yesterday was her last visit; the wound is covered with a clean, dry dressing. Social History - Living Situation Living arrangement: At home Living Situation: With spouse/s.o. Support System: Daughter, Erica, lives in [place] and drives out every 1-2 weeks on Wednesdays to help out, bringing meals, etc. The patient and her have a supportive network of neighbors and friends who help out. The patient no longer drives, but her does continue to drive. Medications/Allergies - Medications Home Medications: Ambulatory Orders Medication Instructions Recorded Confirmed Carbidopa/Levodopa [Sinemet 25-100 1 each PO DAILY MDD Q2hr from 7am 11/11/12 mg Tablet] to 7pm Venlafaxine [Effexor] 75 mg PO DAILY 08/04/13 02/05/18 Acetaminophen 325 mg PO Q4HR PRN MDD 3000mg 02/14/17 05/15/17 Carbidopa/Levodopa [Carbidopa-Levo 1 tab PO QPM 02/14/17 05/15/17 ER 50-200 Tab] Polyethylene Glycol 3350 [Miralax] 17 gm PO DAILY PRN 02/14/17 05/15/17 QUEtiapine [SEROquel] 25 mg PO QPM 02/14/17 05/15/17 - Allergies Allergies/Adverse Reactions: Allergies Allergy/AdvReac Type Severity Reaction Status Date / Time entacapone [From Comtan] AdvReac Unknown Verified 11/30/15 10:14 Review of Systems - Constitutional Constitutional: reports: Fatigue, Weakness, Poor appetite, Weight loss (91 lbs . 93 lbs 05/24/17. 95 lbs 04/13/17. 101 lbs 02/08/17.) - Ears, Nose & Throat Ears, Nose & Throat: reports: Hearing loss - Cardiovascular Cardiovascular: denies: Chest pain - Respiratory Respiratory: denies: SOB at rest, SOB with exertion - Gastrointestinal Gastrointestinal: denies: Abdominal pain, Nausea - Genitourinary Genitourinary: reports: Incontinence (for many years) - Musculoskeletal Musculoskeletal: reports: Assistive devices (doesn't use her walker around the house most of the time) - Integumentary Integumentary: reports: Dryness - Neurological Neurological: reports: General weakness, Memory problems, Abnormal gait ( Parkinson's shuffle) - Psychiatric Psychiatric: reports: Depression, Delusions (history of delusions) Physical Exam - Vital Signs Temperature: 97.5 F Pulse Rate: 83 O2 Saturation: 95 Blood Pressure: 108/76 - Physical Exam General Appearance: positive: No acute distress, Alert Eyes Bilateral: positive: No lid inflammation, Conjunctivae nml, No scleral icterus ENT: positive: No signs of dehydration Neck: positive: No JVD, Trachea midline Cardiovascular: positive: Regular rate & rhythm, No murmur, No gallop Respiratory: positive: No respiratory distress, Diminished throughout Skin: positive: Wound (R jackson tear has clean, dry dressing. Patient reports that she had her last out-patient clinic visit today, wound has resolved.) Extremities: positive: Nml appearance, No pedal edema Neurologic/Psychiatric: positive: Mood/affect nml, Disoriented to time Palliative Care - POLST Patient has POLST: Yes POLST Status: DNR, Selective Treatment Pain: No pain Anorexia: Moderate (4-6) (Continued weight loss, see ROS for details) Sleep: Sleeps well - Palliative Care Discussion: We discussed the benefits and burdens of PT and whether the patient would participate and benefit. They are going to think about it. The spouse questions the point because his isn't "going to get better." His daughter stated afterward that he has said he is ready for "it to be over," ie, . The patient has expressed to me in the past that she feels her life doesn't have meaning and that she doesn't have a purpose. During our discussion the daughter spoke about what the patient used to be able to do (cook beautiful meals, host parties, be very creative), and the losses the patient has had. The daughter was surprised that her mother and father agreed to having the palliative care orthopaedic technologist visit a few weeks ago, since this is not something they would normally do. The orthopaedic technologist and the patient spoke together, just the two of them. Erica says her father never opens up and speaks, and her mother has expressed regret that she opened up to the orthopaedic technologist, saying, "Why did I say all those things." The daughter says she has learned to let her parents do what they need to do. She is currently reading Jimchristiano Vizcaino's "Being Mortal," and she says this is helping her step back and have a different perspective. Impression and Recommendations - Palliative Care Impression: This is a frail 87-year-old woman with advancing Parkinson's disease and progressive Lewy body dementia. She continues to lose weight and has balance issues and a history of recurrent falls. She and her elderly are living independently in their home, with the help of their daughters, and the supportive neighbors and friends. The patient remains at high risk of increased falls and their sequelae. Their goal is to remain in their home through end-of-life. They do have the financial means to hire caregivers to help them remain in their home, but are reluctant to do so. The daughter requests continued palliative care support and oversight. Recommendations/Counseling Done: Parkinson's disease: Increasing instability resulting in falls. On a complicated Sinemet regimen, including medications every 2 hours between 7 AM and 7 PM managed by the patient's . Lewy body dementia: Advancing, with increased memory deficits and confusion. The delusions have improved. Continue Seroquel. Weight loss: Continues, currently 91 pounds, versus 101 pounds on 02/08/17. Encouraged energy shakes and small frequent meals with high calorie snacks. Consider appetite stimulant such as mirtazapine. Advanced care planning: POLST is DNR and selective treatment. The goal is to remain at home with her spouse. Continue to provide palliative care oversight and support, and transition to hospice when criteria are met. Next visit: July 19, 2016. Time Spent: 45 minutes were spent with more than 50% of the time spent on counseling, education, and coordination of care.
== END 2017-06-14 11:01 | disposition home or self-care (01) ==
LOC: PC 11:00
PROVIDERS: ATTEND Nurse Practitioner
DX: Z51.5 Encounter for palliative care (principal); G20 Parkinson's disease; F02.80 Dementia in other diseases classified elsewhere, unspecified severity, without behavioral disturbance, psychotic disturbance, mood disturbance, and anxiety; R63.4 Abnormal weight loss; R53.1 Weakness; R63.0 Anorexia; H91.90 Unspecified hearing loss, unspecified ear; Z91.81 History of falling; Z79.899 Other long term (current) drug therapy; Z66 Do not resuscitate
CPT/HCPCS: 99349

== ENCOUNTER 2017-06-24 12:17 | Emergency (ER) | payer MEDICARE, OTHER ==
[2017-06-24 12:31] VITALS: BP 130/83
== END 2017-06-24 13:49 | disposition left against medical advice (07) ==
LOC: ED 12:17
DX: Z53.21 Procedure and treatment not carried out due to patient leaving prior to being seen by health care provider (principal)

== ENCOUNTER 2017-06-25 12:40 | Emergency (ER) | payer MEDICARE, OTHER ==
--- NOTE | 2017-06-25 13:55 | ED Physician Documentation ---
History of Present Illness - Stated complaint Stated Complaint: FELL HEAD/NECK PX - Chief complaint Chief Complaint: General - Additonal information Additional information: hx from pt 87 f with parkinsons stumble fall carrying fertilizer and hit right side of head 5 days ago no LOC still has BLACKWELL and neck pain both right sided no numbness or weakness Review of Systems Constitutional: denies: Fever, Chills Ears: denies: Drainage/discharge Nose: denies: Epistaxis Cardiac: denies: Chest pain / pressure GI: denies: Abdominal Pain, Vomiting Skin: denies: Laceration (s) Musculoskeletal: reports: Neck pain Neurologic: reports: Headache, Head injury. denies: Focal weakness, Numbness Endocrine: denies: Easy bruising / bleeding PD PAST MEDICAL HISTORY - Past Medical History Past Medical History: Yes Cardiovascular: None Respiratory: None Neuro: Dementia, Parkinson's Endocrine/Autoimmune: None GI: None ADULT CARE PROVIDER: Other : Incontinence HEENT: None Musculoskeletal: Osteoporosis Derm: Other - Past Surgical History Past Surgical History: Yes Ortho: Spine surgery - Present Medications Home Medications: Ambulatory Orders Medication Instructions Recorded Confirmed Carbidopa/Levodopa [Sinemet 25-100 1 each PO DAILY MDD Q2hr from 7am 11/11/12 mg Tablet] to 7pm Venlafaxine [Effexor] 75 mg PO DAILY 11/11/12 06/25/17 Acetaminophen 325 mg PO Q4HR PRN MDD 3000mg 02/14/17 06/25/17 Carbidopa/Levodopa [Carbidopa-Levo 1 tab PO QPM 02/14/17 06/25/17 ER 50-200 Tab] Polyethylene Glycol 3350 [Miralax] 17 gm PO DAILY PRN 02/14/17 06/25/17 QUEtiapine [SEROquel] 25 mg PO QPM 02/14/17 06/25/17 oxyCODONE [Roxicodone] 2.5 mg PO Q6H PRN #6 tablet 06/25/17 - Allergies Allergies/Adverse Reactions: Allergies Allergy/AdvReac Type Severity Reaction Status Date / Time entacapone [From Comtan] AdvReac Unknown Verified 06/25/17 12:46 - Social History Does the pt smoke?: No Smoking Status: Never smoker Does the pt drink ETOH?: Yes Does the pt have substance abuse?: No - Immunizations Immunizations are current?: No Immunizations: TDAP >10years/unknown - POLST Patient has POLST: Yes PD ED PE NORMAL - Vitals Vital signs reviewed: Yes - General General: Alert and oriented X 3 - HEENT HEENT: No: Atraumatic (aged bruise R hinduism) - Neck Neck: Other (diffuse TTP posterior and lateral) - Cardiac Cardiac: RRR - Respiratory Respiratory: No respiratory distress, Clear bilaterally - Abdomen Abdomen: Soft, Non tender - Neuro Neuro: Alert and oriented X 3, No motor deficit, No sensory deficit, Normal speech Results - Vitals Vitals: Vital Signs - 24 hr 06/25/17 12:43 Temperature 35.9 C L Heart Rate 80 Respiratory 18 Rate Blood Pressure 133/111 H O2 Saturation 100 Oxygen O2 Source Room air - Rads (name of study) CTH Radiology: See rad report (no acute fx or bleed) CT CS Radiology: See rad report (hairline non displaced type II odontoid fx, acute or subacute, and chronic T1 T3 endplate fx) PD MEDICAL DECISION MAKING - ED course ED course: type II odontoid fx - no neuro deficits - in collar - [place] [facility] [place] [facility] [place] To recommend hard collar like [place] or similar follow up spine clinic with images on Monday Departure - Departure Disposition: 01 Home, Self Care Clinical Impression: Odontoid fracture Qualifiers: Encounter type: initial encounter Fracture type: closed Qualified Code(s): S12.100A - Unspecified displaced fracture of second cervical vertebra, initial encounter for closed fracture Condition: Fair Instructions: Fx Neck Spine Follow-Up: Aroldo Del Toro MD [Primary Care Provider] - Prescriptions: oxyCODONE [Roxicodone] 2.5 mg PO Q6H PRN #6 tablet PRN Reason: Severe Pain Comments: The spine attending at [facility] advises that you do not need surgery today and may go home but you need to wear the collar we applied at all times until you are seen in spine clinic - you can wash your face and bathe from the neck down but do not remove the collar The spine clinic would like to see you on Monday - they should call you to schedule If you do not hear from the clinic by Monday, please call to schedule Return if worse in any way May take tylenol for mild to moderate pain May take 2.5 mg of oxycodone if needed for severe pain only
[2017-06-25] MEDS ORDERED: ACETAMINOPHEN 325 MG TABLET PO STA (14:16)
--- NOTE | 2017-06-25 15:06 | CT Preliminary Report ---
Exam: CT HEAD W/O IMPRESSION: 1. Mild generalized volume loss and nonfocal white matter disease. Negative for an acute or focal int racranial abnormality. [facility] SITE ID: [id number]
--- NOTE | 2017-06-25 15:06 | CT Report ---
EXAM: CT HEAD EXAM DATE: 06/25/2017 02:35 PM. CLINICAL HISTORY: Fall with head injury and headache COMPARISON: 12/03/2015. TECHNIQUE: Multiaxial CT images were obtained from the foramen magnum to the vertex. Reformats: Coron al. IV contrast: None. In accordance with CT protocol optimization, one or more of the following dose reduction techniques w ere utilized for this exam: automated exposure control, adjustment of mA and/or KV based on patient s ize, or use of iterative reconstructive technique. FINDINGS: Parenchyma: Negative for intracranial hemorrhage. There is mild nonfocal periventricular white matter hypodensity. There is no mass effect or midline shift. Extraaxial Spaces: No subdural or epidural collections identified. Ventricles: Normal in size and position. Sinuses and Orbits: Imaged paranasal sinuses, orbits, and mastoids show no significant abnormality. Bones: No evidence of fracture or calvarial defect. Other: None. IMPRESSION: 1. Mild generalized volume loss and nonfocal white matter disease. Negative for an acute or focal int racranial abnormality. [facility] Referring Provider Line: [phone] SITE ID: [id number]
--- NOTE | 2017-06-25 15:18 | CT Report ---
EXAM: CT CERVICAL SPINE WITHOUT CONTRAST DATE: 06/25/2017 02:39 PM. HISTORY: Fall R HI R neck pain. COMPARISONS: 11/30/2015 CT.. TECHNIQUE: Thin-section axial images were acquired of the cervical spine without contrast. Post-proce ssing: Coronal and sagittal reformats. Other: None. In accordance with CT protocol optimization, one or more of the following dose reduction techniques w ere utilized for this exam: automated exposure control, adjustment of mA and/or KV based on patient s ize, or use of iterative reconstructive technique. FINDINGS: Alignment: No scoliosis or spondylolisthesis. Bones: There is a hairline lucency across the base of the dens consistent with a type II odontoid fra cture. Just anterior to the fracture is a small curvilinear calcification which could represent mild callus from subacute fracture versus incidental spurring. There is a mild compression fracture of the superior T1 vertebra anteriorly which is new since 2016. There is a T3 compression fracture of the s uperior endplate which is new since 2016. Interspace Levels/Facets: There is moderate to severe disk height loss at C3-C4, C4-C5, C5-C6 and C6-C7. Musculature: There is no paravertebral hematoma. Other: The trachea is midline. No apical pneumothorax. IMPRESSION: 1. Hairline, nondisplaced type II odontoid fracture. Uncertain if this is acute or subacute given pos sible callus formation versus incidental spurring along the anterior margin of the fracture. This is not a typical location of spurring. 2. There are fractures of the superior T1 and T3 vertebral body endplates which are new compared to c hest CT of 11/30/2015, however there is absence of adjacent paravertebral hematoma. 3. Chronic multilevel degenerative disease. [facility] Alphonse Chauhan at 15:16 hrs on 06/25/17. Referring Provider Line: [phone] SITE ID: [id number]
[2017-06-25 17:20] VITALS: BP 104/43
== END 2017-06-25 17:19 | disposition home or self-care (01) ==
LOC: ED 12:40
DX: S12.112A Nondisplaced Type II dens fracture, initial encounter for closed fracture (principal); G20 Parkinson's disease; F02.80 Dementia in other diseases classified elsewhere, unspecified severity, without behavioral disturbance, psychotic disturbance, mood disturbance, and anxiety; M48.54XA Collapsed vertebra, not elsewhere classified, thoracic region, initial encounter for fracture; M50.31 Other cervical disc degeneration, high cervical region; W01.10XA Fall on same level from slipping, tripping and stumbling with subsequent striking against unspecified object, initial encounter
CPT/HCPCS: 70450; 72125; 99283; 99284; A9270

== ENCOUNTER 2017-06-27 15:55 | Outpatient (CLI) | payer MEDICARE, OTHER ==
--- NOTE | 2017-06-27 20:59 | CONSULTATION NOTE ---
Palliative Care Follow Up - Referral Referring Provider: DANIELLA Marrero Time of Visit: 06/27/2017. 15:55 - 17:10 Referral setting: Home (Seen in home setting due to taxing and considerable effort required to leave the home due to instability secondary to advanced Parkinson's disease.) - Information Sources Records reviewed: Previous records reviewed History/Review of Systems obtained from: Patient, Family Exam limitations: Clinical condition (dementia, short term memory deficits, word search) - History of Present Illness Update Brief HPI Update: This is a frail 87-year-old woman with Parkinson's disease diagnosed 16 years ago, as well as Lewy body dementia. She has been slowly declining in strength, functionality, and cognition. She lives with her 91-year-old in their large home, and he is her main caregiver. Their adult daughter, Erica, lives in [place] and comes nearly every Monday to help them out. The patient had a fall about a week ago as she was carrying a very heavy bag of fertilizer. She fell and hit the right side of her head, and waited 5 days until she went to the ED for headache and neck pain, both right-sided. Tests and imaging revealed a closed, displaced fracture of the second cervical vertebrae. Surgery was not needed at that time and she was discharged home with a collar which is to be applied at all times until her follow-up visit at the spine clinic. This visit is scheduled for this upcoming Monday, phone [phone]. She was prescribed 2.5 mg of oxycodone as needed for severe pain. Following up with the patient today, she denies pain and headache. She explains that she went outside while her was watching television and decided to move a 50 lb bag of fertilizer, causing her to fall. Her expressed his frustration that she is headstrong and does what she wants to do. We discussed the progression of both the dementia and the impulsivity associated with advancing dementia, and the patient did recognize that she does acts impulsively. I consulted with Leola Clark, the patient's PCP, and we both recommend that she go to the follow up visit with the spine clinic. The patient appears to agreeable with this. The is reluctant to follow up with the spine clinic. He feels that surgery is not an option, and therefore there is no purpose in going. We had a long discussion, which was a continuation of previous discussions, regarding their hiring care giving help. The is still quite reluctant to do this and does not think that an outside regular senior care provider would add any value. He is insistent that he is able to provide what care is needed. I gently spoke about the advantages of having another person take some of the load off, because right now he needs to be "on" 31/10. Erica is concerned that her mother's hallucinations and agitation have increased recently. The patient is on a complex regimen of Sinemet. After consultation with the PCP, we agreed on adding a morning half dose (12.5mg) of quetiapine as needed. I also left a message with Dr Barnett, the patient's neurologist. The daughter was concerned that her signs of agitation could be a result of a UTI; the patient denies dysuria, frequency, pelvic pain, and is afebrile. I followed up with the daughter, Erica, afterwards by phone. She is grateful palliative care was able to make it out today, and the family will continue the discussion about hiring care giving help. They are financially able to afford it , according to Erica. Social History - Living Situation Living arrangement: At home Living Situation: With spouse/s.o. Support System: Erica the daughter lives in [place] and drives to [facility] every 1-2 weeks no Wednesdays to help out, bringing cooked meals. The patient and her have a supportive network of neighbors and friends who help out. The patient no longer drives. Her husban continues to drive. They have a warehouse processor. They do not currently have any regular senior care provider help. Medications/Allergies - Medications Home Medications: Ambulatory Orders Medication Instructions Recorded Confirmed Carbidopa/Levodopa [Sinemet 25-100 1 each PO DAILY MDD Q2hr from 7am 11/11/12 mg Tablet] to 7pm Venlafaxine [Effexor] 75 mg PO DAILY 11/11/12 06/27/17 Acetaminophen 325 mg PO Q4HR PRN MDD 3000mg 02/14/17 06/27/17 Carbidopa/Levodopa [Carbidopa-Levo 1 tab PO QPM 02/14/17 06/27/17 ER 50-200 Tab] Polyethylene Glycol 3350 [Miralax] 17 gm PO DAILY PRN 02/14/17 06/27/17 QUEtiapine [SEROquel] 25 mg PO QPM 02/14/17 06/27/17 oxyCODONE [Roxicodone] 2.5 mg PO Q6H PRN #6 tablet 06/25/17 06/27/17 QUEtiapine [SEROquel] 12.5 mg PO .QAM PRN 06/27/17 06/27/17 - Allergies Allergies/Adverse Reactions: Allergies Allergy/AdvReac Type Severity Reaction Status Date / Time entacapone [From Comtan] AdvReac Unknown Verified 06/25/17 12:46 Review of Systems - Constitutional Constitutional: reports: Weakness, Weight gain (Improved, with weight gain of 4 lbs. 95 lbs on 06/27/17. 91 lbs on 06/14/17. 93 lbs 05/24/17. 95 lbs 04/13/17.) - Ears, Nose & Throat Ears, Nose & Throat: reports: Hearing loss - Cardiovascular Cardiovascular: denies: Palpitations, Chest pain, Edema, Syncope, Exertional dyspnea - Respiratory Respiratory: denies: Cough, SOB at rest, SOB with exertion - Gastrointestinal Gastrointestinal: denies: Constipation, Nausea - Genitourinary Genitourinary: reports: Incontinence (for years). denies: Dysuria, Frequency, Urgency, Flank pain - Musculoskeletal Musculoskeletal: reports: Stiffness, Assistive devices (does not use walker), Other (neck pain, uses oxycodone as needed for relief) - Integumentary Integumentary: reports: Dryness, Pigment changes (hemosiderin staining of lower extremities) - Neurological Neurological: reports: General weakness, Memory problems, Abnormal gait, Incoordination, Other (word search) - Psychiatric Psychiatric: reports: Hallucinations, Aggitation Physical Exam - Vital Signs Temperature: 96.5 F Pulse Rate: 84 O2 Saturation: 97 (room air) Blood Pressure: 128/75 - Physical Exam General Appearance: positive: No acute distress, Alert Eyes Bilateral: positive: EOMI, No lid inflammation, Conjunctivae nml, No scleral icterus ENT: positive: No signs of dehydration Neck: positive: Stiff neck (wearing neck brace) Cardiovascular: positive: Regular rate & rhythm, No murmur, No gallop Respiratory: positive: Chest non-tender, No respiratory distress, Breath sounds nml Skin: positive: Dryness, Other Extremities: positive: No pedal edema Neurologic/Psychiatric: positive: Mood/affect nml, Disoriented to time, Other ( Moderate ataxia displayed during seated conversation.). negative: Motor nml Palliative Care - POLST Patient has POLST: Yes POLST Status: DNR, Selective Treatment Pain: No pain (None currently. Uses oxycodone 2.5mg as needed for neck pain), Location Tiredness/Fatigue: None Drowsiness/Sedation: None - Palliative Care Discussion: We discussed at length the benefits and burdens of hiring caregiving support to help the , who is insistent he is handling it. He is quite skeptical of the value of having caregiving and doesn't think they would have much to do. He can't see "spending money" on having someone come and sit around. There is friction between the two of them regarding her need to feel useful and accomplishing something, and his desire to be able to function independently in the kitchen, and not worry about her coming in to "help," and not actually having the capacity to do so. We discussed possible alternative activities or a hobby: painting, brianna, craft work, or ANother project the patient could adopt and experience fulfillment and a sense of accomplishment. I spoke with Erica at length after this visit. She will continue the conversation with her parents about hiring caregiving help. She believes her father will eventually "come around" to agreeing to it, particularly since it is springtime, and if there were another person helping with his , he would be able to spend time outdoors working on the property. Erica will also think about an artistic activity or project her mother could become involved with. Erica feels confident that her parents will end go to the spine clinic for the patient. She has already spoken to her brother about driving the parents, since she will be unavailable to do so. Impression and Recommendations - Palliative Care Impression: This is a frail 87-year-old woman with advancing Parkinson's disease and progressive Lewy body dementia. She recently fell and fractured her second cervical vertebrae. She is wearing a continuous neck brace and is scheduled for follow-up with the spine clinic later this week. She continues to decline in cognition and functionality and continues at high risk for further falls and their sequelae. She and her could benefit from additional caregiving support, which is not at this point acceptable to either one, particularly the . Palliative care will continue to support and monitor the patient's condition, and will refer her to hospice when appropriate. Recommendations/Counseling Done: Parkinson's disease: Continue Sinemet regimen (Q2 hours between 7-7pm). Fractured cervical vertebra: Consultation with spine clinic scheduled for . Continue oxycodone 2.5mg q6h as needed. Lewy body dementia: Some increase of anxity and hallucinations. Add quetiapine 12.5mg in the morning as needed for agitation. Weight loss: Improvement. Gained 4 lbs since last visit. See ROS for details. Depression: Continue venlafaxine. Consider starting a project or art/craft activities to help foster a sense of purpose and accomplishment. Advanced care planning: Highly recommend hiring care giving help to relieve pressure on spouse who is sole caregiver. Daughter Erica believes starting out at a few hours a day would be beneficial. She will continue to speak with her father about this. Next visit scheduled for: July 19, 2017, 11:00. Time Spent: 75 minutes were spent with more than 50% of the time spent on counseling, education, and coordination of care and weighing benefits and burdens of intervention options.
== END 2017-06-27 15:56 | disposition home or self-care (01) ==
LOC: PC 15:55
PROVIDERS: ATTEND Nurse Practitioner
DX: Z51.5 Encounter for palliative care (principal); G20 Parkinson's disease; S12.9XXD Fracture of neck, unspecified, subsequent encounter; F02.80 Dementia in other diseases classified elsewhere, unspecified severity, without behavioral disturbance, psychotic disturbance, mood disturbance, and anxiety; F32.9 Major depressive disorder, single episode, unspecified; Z91.81 History of falling; Z79.891 Long term (current) use of opiate analgesic; Z66 Do not resuscitate
CPT/HCPCS: 99350

== ENCOUNTER 2017-07-19 15:34 | Outpatient (CLI) | payer MEDICARE, OTHER ==
--- NOTE | 2017-07-19 15:56 | CONSULTATION NOTE ---
Palliative Care Follow Up - Referral Referring Provider: DANIELLA Marrero Time of Visit: 07/19/2017. 11:00 - 12:00 Referral setting: Home (Seen in home setting due to taxing and considerable effort required to leave the home due to gait instability and limited mobility secondary to advanced parkinson's disease.) Referral Reason: Dementia, advanced Parkinson's - Information Sources Records reviewed: Previous records reviewed History/Review of Systems obtained from: Patient, Family Exam limitations: Clinical condition (dementia, increasing short-term memory deficits, word search) - History of Present Illness Update Brief HPI Update: - Frail 87-year-old woman with Parkinson disease diagnosed 16 years ago, as well as Lewy body dementia. - She lives with her 91-year-old in their large home, and he is her main caregiver. -Their adult daughter, Erica, lives in [place] and comes nearly every Monday to help them out. - Patient fell in mid-June while trying to garden. Went to ED 5 days later, diagnostics were done, she was treated for pain and headache, given a collar to wear consistently and referred to spine clinic by the ED and by her PCP. - Family and patient have decided not to follow up with the spine clinic. Patient continues to wear her neck brace. - She complains of occasional headaches and neck pain. - Family has just engaged a new caregiver through [employer], her name is Dominique. She will work M,W,F from 10-2pm. - She has been slowly and steadily declining in strength, functionality and cognition. - This week her cognitive decline is especially noticeable, and her Parkinson's dyskinesia has increased. - Weight today is 91 lbs. It appears to have stabilized there. - Patient has a cough with phlegm spouse is concerned about. Lungs sound clear, patient appears well, no complaints of pain, SOB, headache, malaise. Has occasional dry cough, no pheegm noted. - Patient and spouse asked about decreasing or stopping the Sinemet medicine. I advised against it, or to see their neurologist, since it is a complicated regimen, and her symptoms would likely increase. - Neither patient nor family want to return to the neurologist, this is a decision they made after the last neurology consultation, as he had no further treatment for her PD and it is a taxing and considerable effort to get to [place] for the appointments. Social History - Living Situation Living arrangement: At home Living Situation: With spouse/s.o. Support System: Eriac the daughter lives in [place] and drives to [facility] every 1-2 weeks on Wednesdays to help out, and to bring cooked meals. The patient and her have a supportive network of neighbors and friends who also help out. The patient no longer drives, her continues to drive. They have a loader malt house and have just engaged caregiver help for 3 days a week for 4 hours per day. Medications/Allergies - Medications Home Medications: Ambulatory Orders Medication Instructions Recorded Confirmed Carbidopa/Levodopa [Sinemet 25-100 1 each PO DAILY MDD Q2hr from 7am 11/11/12 mg Tablet] to 7pm Venlafaxine [Effexor] 75 mg PO DAILY 11/11/12 07/19/17 Acetaminophen 325 mg PO Q4HR PRN MDD 3000mg 02/14/17 07/19/17 Carbidopa/Levodopa [Carbidopa-Levo 1 tab PO QPM 02/14/17 07/19/17 ER 50-200 Tab] Polyethylene Glycol 3350 [Miralax] 17 gm PO DAILY PRN 02/14/17 07/19/17 QUEtiapine [SEROquel] 25 mg PO QPM 02/14/17 07/19/17 oxyCODONE [Roxicodone] 2.5 mg PO Q6H PRN #6 tablet 06/25/17 07/19/17 QUEtiapine [SEROquel] 12.5 mg PO .QAM PRN 06/27/17 07/19/17 guaiFENesin [Guaifenesin] 5 ml PO Q4H PRN 07/19/17 07/19/17 - Allergies Allergies/Adverse Reactions: Allergies Allergy/AdvReac Type Severity Reaction Status Date / Time entacapone [From Comtan] AdvReac Unknown Verified 06/25/17 12:46 Review of Systems - Constitutional Constitutional: reports: Weakness, Weight loss (91 lbs 07/19/17. 95 lbs . 91 lbs 06/14/17. 93 lb 05/24/17. 95 lbs 04/13/17.). denies: Fatigue, Fever, Chills - Ears, Nose & Throat Ears, Nose & Throat: reports: Hearing loss - Cardiovascular Cardiovascular: denies: Irregular heart rate, Palpitations, Chest pain, Edema, Exertional dyspnea, Decr. exercise tolerance - Respiratory Respiratory: reports: Cough, Sputum production. denies: Wheezing, SOB at rest, SOB with exertion - Gastrointestinal Gastrointestinal: reports: Constipation, Change in bowel habits - Genitourinary Genitourinary: reports: Dysuria, Frequency - Musculoskeletal Musculoskeletal: reports: Muscle pain (neck pain), Stiffness, Limited range of motion, Assistive devices (does not consistently use her walker), Transfer issues (unsteady, shuffling gait) - Integumentary Integumentary: reports: Dryness, Pigment changes - Neurological Neurological: reports: General weakness, Memory problems, Abnormal gait, Incoordination, Other (word search; inability to complete thoughts and sentences ; significant short term memory issues.) - Psychiatric Psychiatric: reports: Hallucinations, Aggitation Physical Exam - Vital Signs Temperature: 96.5 F Pulse Rate: 92 O2 Saturation: 95 (room air) Blood Pressure: 91/60 - Physical Exam General Appearance: positive: No acute distress, Alert, Other (significant dyskinesia; shuffling Parkinson's gait) Eyes Bilateral: positive: EOMI, No lid inflammation, Conjunctivae nml, No scleral icterus ENT: positive: No signs of dehydration Neck: positive: No JVD, Trachea midline Cardiovascular: positive: Regular rate & rhythm, No gallop Respiratory: positive: No respiratory distress, Diminished throughout. negative : Rales Skin: positive: Dryness, Other (hemosiderin staining of lower extremities) Extremities: positive: No pedal edema Neurologic/Psychiatric: positive: Mood/affect nml, Disoriented to time. negative: Motor nml Palliative Care - POLST Patient has POLST: Yes POLST Status: DNR, Full Code Pain: Location (neck), Comment (occasional pain and discomfort of neck. Continues to wear the neck brace, does not intend to follow up with spine clinic ) - Palliative Care Discussion: - The patient is very social and loves to entertain, and she misses her social life in [place]. - They moved to [facility] 20 years ago, but she kept a [id number] apartment in [place] to enjoy social and cultural activities there. - Now she is no longer able to go independently to [place]. - They do continue to entertain friends and family at their [place] house. - They've had people over for the holidays, and they just had guests this weekend for dinner. - The patient is hopeful that since they'll be having extra care giving help they may be able host more social events. - The patient said she is feeling better about herself, that she is being more "pushy" (assertive) in doing things. - She's started a project of cleaning out drawers. This is likely causing some havoc, since the patient has significant short-term memory deficits and has extreme difficulty completing anything: sentences, thoughts, and actions. - The patient has questions about what to expect has her disease progresses. She knows the saying, "You don't of PD, you with PD." I provided education and anticipatory guidance, using the analogy of the car "running out of gas," about the progressive nature of PD and sequelae of infections and falls. - Daughter Erica is leaving later this week on a two-week bicycling trip in the [place]. Impression and Recommendations - Palliative Care Impression: This is a frail 87-year-old woman with advancing Parkinson's disease and progressive Lewy body dementia. She is noticeably declining in cognition and functionality, with increasing dyskinesia and balance issues. Her family has just engaged a new vest backer who will start next week on M,W,F, 4 hours per day. She continues at high risk for the sequelae of falls and and respiratory infections due to swallowing problems secondary to PD. Family requests continued palliative care oversight and monitoring for transition to hospice when appropriate. Recommendations/Counseling Done: Parkinson's disease: Patient and family inquired whether to D/C or decrease Sinemet. I recommended not, but if they wanted to, to consult with her neurologist, Dr Je Barnett. They do not want to follow up with neurologist due to taxing and considerable effort to get there, and because they feel there are no further treatment options. Lewy body dementia: Agitation and hallucinations at baseline. Continue quetiapine 25mg in the evenings and 12.5mg in the mornings as needed. Patient is having increasing difficulty in communicating and completing her thoughts and sentences. Fractured cervical vertebra: Improving, patient is still wearing neck brace. Family chose to not follow up with spine clinic (they had cancelled an appointment for 06/30), nor with PCP despite my recommendation. Patient uses Tylenol for pain and headaches as needed. Weight loss: Stable. 91 lbs today. Weight has ranged from 95-91 lbs since April. Patient feels her appetite is good. New primary care sales representative plans to help, has her methods to increase caloric intake. Depression: Patient is feeling she has improved and is trying to be more assertive. She has started a project of cleaning out drawers. Continue venlafaxine. Advanced care planning: POLST is DNR and selective. Family has just engaged an experienced primary care sales representative, Dominique, from [employer], who will be coming M,W,F from 10-2pm. Family is supportive of transitioning to Hospice when appropriate Daughter Erica will call to arrange the follow up visit. Time Spent: 60 minutes were spent with more than 50% of the time spent on counseling, education, and coordination of care.
== END 2017-07-19 15:35 | disposition home or self-care (01) ==
LOC: PC 15:34
PROVIDERS: ATTEND Nurse Practitioner
DX: Z51.5 Encounter for palliative care (principal); F02.80 Dementia in other diseases classified elsewhere, unspecified severity, without behavioral disturbance, psychotic disturbance, mood disturbance, and anxiety; G31.83 Neurocognitive disorder with Lewy bodies; S12.9XXA Fracture of neck, unspecified, initial encounter; R63.4 Abnormal weight loss; F32.9 Major depressive disorder, single episode, unspecified; R53.1 Weakness; W19.XXXA Unspecified fall, initial encounter; Y93.H2 Activity, gardening and landscaping; Z66 Do not resuscitate
CPT/HCPCS: 99350

== ENCOUNTER 2017-08-23 13:24 | Outpatient (CLI) | payer MEDICARE, OTHER ==
--- NOTE | 2017-08-23 16:39 | CONSULTATION NOTE ---
Palliative Care Follow Up - Referral Referring Provider: DANIELLA Marrero Time of Visit: 08/23/2017. 11:15 - 12:00 Referral setting: Home (Seen in home setting due to taxing and considerable effort required to leave the home due to gait instability and limited mobility secondary to advanced parkinson's disease.) Referral Reason: Increased fatigue - Information Sources Records reviewed: Previous records reviewed History/Review of Systems obtained from: Patient, Family Exam limitations: Clinical condition (dementia; increasing short-term memory deficits, word search) - History of Present Illness Update Brief HPI Update: -Frail 87-year-old woman with Parkinson's disease diagnosed 16 years ago, as well as Lewy body dementia. -She lives with her 91-year-old in their large home and he is her main caregiver. -They have recently engaged a caregiver, Dominique, from 9 AM to 1 PM on Tuesdays and Fridays. They are very satisfied with her and having her there. -Their adult daughter, Erica, lives in [place] and visits nearly every week to help them out. -Patient is recovering well from her fall back in June with closed, displaced fracture of the second cervical vertebrae. -She is no longer wearing her neck brace, and denies pain. -Family reports they weren't able to wake her up in the morning from her night' s sleep. They attempted for several hours. -They were very concerned, but it appears to have resolved. -Patient says she had some bad dreams and was restless throughout those nights. -She continues to have short-term memory and cognitive issues, and moderate/ severe word search. -Patient's Parkinson's symptoms -- tremors, dyskinesia, shuffling unstable gait - continue to intensify. - reports two recent non-injury falls. She has poor impulse control, poor insight into her status, and is non-compliant with the walker. Today I was blunt about her significantly high risk for the sequelae of falls and that she should ambulate with the walker at all times. -She did start to use it while I was there, though at one point she started swinging it off the ground. -Spouse has expressed a lot of frustration at her "stubbornness." -Family reports increased coughing with eating, now with food such as a strawberry. -Previously it was just meat and lettuce. Highly recommended they start "mechanical soft" (chopped) or pureeing food if needed, and if tolerated. - says it doesn't really matter, she hardly eats anything. -Her weight is remaining stable, 92 or 93 lbs today on the home scale. Social History - Living Situation Living arrangement: At home Living Situation: With spouse/s.o. Support System: She and her are both quite independent. Her of 67 years is her main caregiver. They now have a caregiver from [facility], who comes Tuesdays and Fridays from 9-1pm. They also have a snack steward 1x/week. Their daughter Erica from [place] comes usually once a week. Medications/Allergies - Medications Home Medications: Ambulatory Orders Medication Instructions Recorded Confirmed Carbidopa/Levodopa [Sinemet 25-100 1 each PO DAILY MDD Q2hr from 7am 11/11/12 mg Tablet] to 7pm Venlafaxine [Effexor] 75 mg PO DAILY 11/11/12 08/23/17 Acetaminophen 325 mg PO Q4HR PRN MDD 3000mg 02/14/17 08/23/17 Carbidopa/Levodopa [Carbidopa-Levo 1 tab PO QPM 02/14/17 08/23/17 ER 50-200 Tab] Polyethylene Glycol 3350 [Miralax] 17 gm PO DAILY PRN 02/14/17 08/23/17 QUEtiapine [SEROquel] 25 mg PO QPM 02/14/17 08/23/17 oxyCODONE [Roxicodone] 2.5 mg PO Q6H PRN #6 tablet 06/25/17 08/23/17 QUEtiapine [SEROquel] 12.5 mg PO .QAM PRN 06/27/17 08/23/17 guaiFENesin [Guaifenesin] 5 ml PO Q4H PRN 07/19/17 08/23/17 - Allergies Allergies/Adverse Reactions: Allergies Allergy/AdvReac Type Severity Reaction Status Date / Time entacapone [From Comtan] AdvReac Unknown Verified 06/25/17 12:46 Review of Systems - Constitutional Constitutional: reports: Fatigue (unrousable from bed this past weekend), Weakness, Poor appetite, Weight stable (92-93 lbs 5/16/18. 91 lbs 07/19/17. 95 lbs 06/27/17. 91 lbs 06/14/17. 93 lbs 18. 95 lbs 04/13/.92-93 lbs today.) - Ears, Nose & Throat Ears, Nose & Throat: reports: Hearing loss - Cardiovascular Cardiovascular: denies: Irregular heart rate, Chest pain, Edema, Syncope, Exertional dyspnea - Respiratory Respiratory: reports: Cough (when eating). denies: SOB at rest, SOB with exertion - Genitourinary Genitourinary: reports: Incontinence. denies: Dysuria - Musculoskeletal Musculoskeletal: reports: Assistive devices (Educated her on using walker at all times. She is generally noncompliant.). denies: Muscle pain - Neurological Neurological: reports: Memory problems, Abnormal gait, Incoordination, Other ( word search, difficulty completing thoughts and sentences; significant short- term memory deficits) - Psychiatric Psychiatric: reports: Hallucinations, Aggitation (3-4pm) Physical Exam - Vital Signs Temperature: 96.8 F Pulse Rate: 71 O2 Saturation: 96 (room air) Blood Pressure: 102/66 - Physical Exam General Appearance: positive: No acute distress, Alert Eyes Bilateral: positive: No lid inflammation, Conjunctivae nml, No scleral icterus ENT: positive: No signs of dehydration Neck: positive: No JVD, Trachea midline Cardiovascular: positive: Regular rate & rhythm, No gallop Respiratory: positive: No respiratory distress, Breath sounds nml Skin: positive: Dryness, Wound (L jackson, covered in clean bandage), Other ( hemosiderin staining of LEs.) Extremities: positive: No pedal edema Neurologic/Psychiatric: positive: Oriented x3, Mood/affect nml Palliative Care - POLST Patient has POLST: Yes POLST Status: DNR, Selective Treatment Pain: No pain Tiredness/Fatigue: Comment (Improved since this weekend) Dyspnea: None Anorexia: Moderate (4-6) Sleep: Variable sleep pattern Performance Status: poor balance, shuffling unsteady gait, dyskinesia worsening, short-term memory deficits, requires help with ADLs, should ambulate with walker at all times but is non-compliant - Palliative Care Discussion: The 's biggest complaint and concern today is "she won't listen; when she gets an idea in her head, nothing stops her." An example: leaving the house at 5pm to follow "people" she saw. When he went to find her, she was "[place]idential [place] the highway." Patient has somewhat poor insight into her status. The spouse still risks caregiver burnout, but notes a significant improvement since Dominique the caregiver started. They both seem very satisfied, though it is still difficult for them to give up their independence. The patient asked again, as she has in the past, about what to expect for her future and the progress of Parkinson's disease. I again spent time providing education and anticipatory guidance I also provided education and encouragement, to the patient regarding using the walker at all times due to her unsteady gait, poor balance and very high risk of falls and their sequelae. She has been generally noncompliant, but Erica ( daughter) does appreciate this support from a healthcare worker. Her notes she has fallen several times recently. I explained to Erica the patient doesn't yet meet hospice criteria, and she was disappointed. She is concerned about how long her mother can keep going at this level of frailty and cognitive deficit. She is concerned for her father being able to continue with all the responsibilities and difficulties of caring for her. He is committed to keeping her at home because when they did institutionalize her in 2016, the patient reacted very strongly and he felt a lot of guilt. Erica is relieved they are adjusting well to the caregiver, and will encourage them to increase the caregiver's hours as needed. Impression and Recommendations - Palliative Care Impression: This is a frail 87-year-old woman with advancing Parkinson's disease and progressive Lewy body dementia. She continues to decline in cognition and functionality but does not yet meet hospice criteria. The addition of a caregiver twice a week has significantly improved the situation for the patient and especially for the spouse. Family wants to continue palliative care oversight and monitoring, with transition to hospice when criteria are met. Recommendations/Counseling Done: Depression: would like to discontinue venlafaxine. We agreed to a taper over 2 weeks and monitoring effects, with the understanding that we can restart if there are burdensome symptoms. Start taking 75mg every other day over 8 days, then 75mg every three days for 3 times, then stop. Monitor for mood/behavior changes. Lewy body dementia: Continue at present quetiapine dosage of 25mg in the evening , but move it forward to 3-4pm, due to "owners" syndrome around that time. Also continue 12.5 mg PRN in the morning. We will see if changing the timing improves her symptoms. If not, titrate dosing as needed. Parkinson's disease: Worsening symptoms of dyskinesia, stiffness, shuffling gait. Continues on Sinemet regimen every 2 hours between 7-7pm. Fractured cervical vertebra: Resolved, no longer wears neck brace, denies pain. The family did not end up consulting with spine clinic. Anorexia: No improvement. Weight remains stable, today 92 or 93 lbs on home scale. Dysphagia: Worsening. Recommend mechanical soft texture: chopping up all food Advanced care planning: DNR and selective treatment. Transition to hospice when appropriate. Next visit: MonSeptember 13, 11:00 Time Spent: 45 minutes were spent with more than 50% of the time spent on counseling, education, and coordination of care.
== END 2017-08-23 13:25 | disposition home or self-care (01) ==
LOC: PC 13:24
PROVIDERS: ATTEND Nurse Practitioner
DX: Z51.5 Encounter for palliative care (principal); F32.9 Major depressive disorder, single episode, unspecified; G20 Parkinson's disease; G31.83 Neurocognitive disorder with Lewy bodies; F02.80 Dementia in other diseases classified elsewhere, unspecified severity, without behavioral disturbance, psychotic disturbance, mood disturbance, and anxiety; R63.0 Anorexia; R13.10 Dysphagia, unspecified; R44.1 Visual hallucinations; Z91.81 History of falling; Z79.891 Long term (current) use of opiate analgesic; Z66 Do not resuscitate
CPT/HCPCS: 99349

== ENCOUNTER 2017-08-31 17:20 | Outpatient (CLI) | payer MEDICARE, OTHER ==
--- NOTE | 2017-08-31 21:00 | CONSULTATION NOTE ---
Palliative Care Follow Up - Referral Referring Provider: DANIELLA Marrero Time of Visit: 08/31/2017. 17:20 - 18:20 Referral setting: Home (Seen in home setting due to taxing and considerable effort required to leave the home due to change in consciousness, end of life stage.) Referral Reason: Acute change of consciousness - Information Sources Records reviewed: Previous records reviewed History/Review of Systems obtained from: Patient, Family Exam limitations: Clinical condition (lethargy; semi-conscious) - History of Present Illness Update Brief HPI Update: -Very frail 87-year-old woman with Parkinson's disease diagnosed 16 years ago as well as Lewy body dementia. -She lives with her 91-year-old in their large home and he is her main caregiver. -Medical history: Advanced Parkinson's disease, Lewy body dementia, pelvic floor instability, osteoporosis, squamous cell carcinoma in situ, actinic keratosis, h/o spinal surgery. -Daughter Erica called today to report the patient has not been rousable in the last 1-2 days. 2 days ago she had called to report a seizure episode in the previous 2 days, but reported at that time the patient was back to baseline. That was on 08/29. At that time, I had provided education on keeping her safe in case of seizure. -At todays visit, the patient is bedridden, frail, cachectic, skin taut over temporal bones, semi-conscious, mouth open with audible, strained breathing. -Patient attempts to speak and is aware of my presence, weakly holds my hand, asks me how long it will be. -I explained to and daughter (on the phone), patient is at end of life; they were not surprised, they have been expecting this. -Today's visit is in early evening, I attempted to find a pharmacy to fill morphine solution but was unsuccessful. -Hospice is able to schedule admission tomorrow afternoon. Social History - Living Situation Living arrangement: At home Living Situation: With spouse/s.o. Support System: Lives with 91-year-old spouse who is her main caregiver. He has resisted hiring caregiver support in the past, now has Dominique, who comes in twice weekly. Daughter, Erica, lives in [place] and visits weekly. They also have a son who is less involved. Medications/Allergies - Medications Home Medications: Ambulatory Orders Medication Instructions Recorded Confirmed Carbidopa/Levodopa [Sinemet 25-100 1 each PO DAILY MDD Q2hr from 7am 11/11/12 mg Tablet] to 7pm Venlafaxine [Effexor] 75 mg PO DAILY 11/11/12 08/23/17 Acetaminophen 325 mg PO Q4HR PRN MDD 3000mg 02/14/17 08/23/17 Carbidopa/Levodopa [Carbidopa-Levo 1 tab PO QPM 02/14/17 08/23/17 ER 50-200 Tab] Polyethylene Glycol 3350 [Miralax] 17 gm PO DAILY PRN 02/14/17 08/23/17 QUEtiapine [SEROquel] 25 mg PO QPM 02/14/17 08/23/17 oxyCODONE [Roxicodone] 2.5 mg PO Q6H PRN #6 tablet 06/25/17 08/23/17 QUEtiapine [SEROquel] 12.5 mg PO .QAM PRN 06/27/17 08/23/17 guaiFENesin [Guaifenesin] 5 ml PO Q4H PRN 07/19/17 08/23/17 - Allergies Allergies/Adverse Reactions: Allergies Allergy/AdvReac Type Severity Reaction Status Date / Time entacapone [From Comtan] AdvReac Unknown Verified 06/25/17 12:46 Review of Systems - Other Findings Other Findings: Unobtainable from patient Physical Exam - Vital Signs Temperature: 98.4 F Pulse Rate: 105 O2 Saturation: 95 Blood Pressure: 87/60 - Physical Exam General Appearance: positive: Moderate distress, Lethargic, Cachetic ENT: positive: Dry mucous membranes Neck: positive: Other (weak) Respiratory: positive: Other. negative: No respiratory distress (audible, breathing with effort), Breath sounds nml Extremities: positive: Other (hands and feet warm; no mottling) Neurologic/Psychiatric: positive: Disoriented to time, Unintelligible speech, Other (semi conscious) Palliative Care - POLST Patient has POLST: Yes POLST Status: DNR, Selective Treatment - Palliative Care Discussion: Extensive discussion with spouse about hospice, his many questions, is it really needed, educating and demonstrating oral care, medications for comfort, and instructions and plan if patient passes prior to admission to Hospice. Spouse is calm and accepted the information that his is transitioning to end of life and active dying. He does say this is expected, and admits that he thinks when it actually happens it may feel a lot different. But for now, he feels steady, with a plan, and ready for what lies ahead. Impression and Recommendations - Palliative Care Impression: Patient is in end of life transition, likely active dying. Spouse and daughter are calm and taking it well, this has been expected. Hospice can admit tomorrow. Recommendations/Counseling Done: Referral to hospice: - will watch her tonight, providing hydration and oral care which I provided education on and demonstrated. -He has oxycodone for restlessness / discomfort. -Erica, daughter, will be here first thing in the morning to drive to pharmacy to fill comfort care scripts. -Palliative Care will follow up with pharmacy. -Scripts left with spouse for comfort care prior to Hospice admission later in the afternoon. -Morphine oral solution. 20mg/mL. 0.25 mL (5g) by mouth/buccally every 2 hours as needed for SOB, pain, agitation. -Ativan/lorazepam 2mg/mL. Give 0.25mL (0.50mg) by mouth/buccally every 4 hours as needed for anxiety Time Spent: 60 minutes were spent with more than 50% of the time spent on counseling, education, anticipatory guidance, and coordination of care.
== END 2017-08-31 17:21 | disposition home or self-care (01) ==
LOC: PC 17:20
PROVIDERS: ATTEND Nurse Practitioner
DX: Z51.5 Encounter for palliative care (principal); R40.0 Somnolence; G31.83 Neurocognitive disorder with Lewy bodies; G20 Parkinson's disease; F02.80 Dementia in other diseases classified elsewhere, unspecified severity, without behavioral disturbance, psychotic disturbance, mood disturbance, and anxiety; Z79.891 Long term (current) use of opiate analgesic
CPT/HCPCS: 99350